=== PATIENT | female | born 1950 | race Caucasian/White ===

== ENCOUNTER → 2016-06-16 | Outpatient (CLI) | payer BC ==
[~2016-06-16] MED LIST: CHOL100010 PO; CITA10TA8 PO; CLMTP1 TD; SUMA100T16 PO
== END | disposition home or self-care (01) ==
LOC: C.PAPS 16:14
PROVIDERS: ATTEND Obstetrics & Gynecology
DX: Z12.4 Encounter for screening for malignant neoplasm of cervix (principal)

== ENCOUNTER → 2016-07-19 | Outpatient (CLI) | payer BC ==
[2016-07-19 09:31] LABS: BASO % 0.9 %; BASO ABS # 0.04 K/uL (0-0.2); COMPLETE YES; EOS % 3.2 %; HEMATOCRIT 36.3 % (37-47); IG% 0.2 %; LYMPH % 39.1 %; LYMPH ABS # 1.82 K/uL (1.2-3.4); MEAN CELL VOLUME 87.9 fL (80-100); MEAN CORPUSCULAR HEMOGLOBIN 30.5 pg (25-34); MEAN CORPUSCULAR HGB CONC 34.7 g/dl (32-36); MEAN PLATELET VOLUME 9.8 fL (7.4-10.4); MONO % 9.7 %; NEUT % 46.9 %; PLATELET COUNT 286 K/uL (130-400); RED BLOOD COUNT 4.13 M/uL (4.2-5.4); WHITE BLOOD COUNT 4.65 K/uL (4.8-10.8)
[2016-07-19 09:45] LABS: BLOOD UREA NITROGEN 8 mg/dl (7-18); BUN/CREATININE RATIO 12.7 (10-20); CALCIUM 8.8 mg/dl (8.5-10.1); CARBON DIOXIDE 26 mmol/L (21-32); CHLORIDE 104 mmol/L (98-107); CREATININE 0.62 mg/dl (0.60-1.20); GLUCOSE 95 mg/dl (70-99); POTASSIUM 4.2 mmol/L (3.5-5.1); SODIUM 138 mmol/L (136-145)
== END | disposition home or self-care (01) ==
LOC: C.LAB1850 07:09
PROVIDERS: ATTEND Family Medicine
DX: R00.2 Palpitations (principal)

== ENCOUNTER → 2016-08-23 | Outpatient (CLI) | payer BC | END | disposition home or self-care (01) | LOC: C.MAMM 14:25 | PROVIDERS: ATTEND Family Medicine | DX: M81.0 Age-related osteoporosis without current pathological fracture (principal); M85.88 Other specified disorders of bone density and structure, other site; M85.851 Other specified disorders of bone density and structure, right thigh; M85.852 Other specified disorders of bone density and structure, left thigh ==

== ENCOUNTER → 2016-11-11 | Outpatient (CLI) | payer BC ==
--- NOTE | 2016-11-11 15:22 | MAMMOGRAPHY REPORT ---
BILATERAL DIGITAL SCREENING MAMMOGRAM WITH CAD: 11/11/2016 CLINICAL HISTORY: Routine screening. Patient has no complaints. TECHNIQUE: Current study was also evaluated with a Computer Aided Detection (CAD) system. Bilateral CC and MLO views were obtained. COMPARISON: Comparison is made to exams dated: 11/10/2015 mammogram, 11/27/2014 ultrasound biopsy, 10/31 mammogram, 11/27/2014 stereotactic biopsy, 11/12/2014 mammogram, and 11/12/2014 ultrasound - [facility]. BREAST COMPOSITION: The tissue of both breasts is heterogeneously dense, which may obscure small mas ses. FINDINGS: No suspicious masses, calcifications, or areas of architectural distortion are noted in ei ther breast. There has been no significant interval change compared to prior exams. Biopsy marker cl ips are again noted bilaterally. Bilateral benign-appearing calcifications are not significantly sae nged. IMPRESSION: ACR BI-RADS CATEGORY 2: BENIGN There is no mammographic evidence of malignancy. A 1 year screening mammogram is recommended. The pa tient will receive written notification of the results. Approximately 10% of breast cancers are not detected with mammography. A negative mammographic report should not delay biopsy if a clinically suggestive mass is present. Jerica Patel M.D. /:11/11/2016 07:39:45 [employer] Operator: Danna HERRERA)(Carol), [facility] letter sent: Normal 1/2 BI-RADS Code: ACR BI-RADS Category 2: Benign
== END | disposition home or self-care (01) ==
LOC: C.MAMM 07:14
PROVIDERS: ATTEND Obstetrics & Gynecology
DX: Z12.31 Encounter for screening mammogram for malignant neoplasm of breast (principal)

== ENCOUNTER → 2017-07-15 | Outpatient (CLI) | payer BC ==
--- NOTE | 2017-07-15 14:22 | DIAGNOSTIC IMAGING REPORT ---
CERVICAL WITHOUT CONTRAST HISTORY: 66 years-old Female M54.12 Cervical radicular pain chronic left neck and left shoulder pain with radiation into the fingers COMPARISON: None available TECHNIQUE: Multiplanar multisequence MRI of the cervical spine was obtained without contrast. FINDINGS: The large field of view curtain feller blindstitch localizer images demonstrate no gross abnormality. The imaged posterior fossa structures appear unremarkable. There is no focal bone marrow edema, acute fracture or subluxation identified. No prevertebral soft tissue swelling. Signal within the imaged cervical spinal cord is within normal limits. C2-C3: Mild intervertebral disc space narrowing with uncovertebral spurring and mild facet arthrosis. No central canal or foraminal narrowing. C3-C4: Mild intervertebral disc space narrowing with uncovertebral spurring and small posterior disc bulge with mild facet arthrosis. Findings cause mild bilateral foraminal narrowing. Central canal is patent. C4-C5: Mild to moderate intervertebral disc space narrowing with uncovertebral spurring and small circumferential annular disc bulge with mild facet arthrosis. There is flattening of the ventral thecal sac without significant central canal stenosis. There is mild left with mild to moderate right foraminal narrowing. C5-C6: Moderate intervertebral disc space narrowing with small posterior disc osteophyte complex and mild facet arthrosis is noted causing mild central canal and moderate bilateral foraminal narrowing. C6-C7: Moderate intervertebral disc space narrowing with spondylitic spurring and small circumferential disc bulge flattens the ventral thecal sac. Mild facet arthrosis. There is no significant central canal or foraminal narrowing. C7-T1: Mild facet arthrosis and uncovertebral spurring without central canal or foraminal narrowing. The imaged upper thoracic levels are unremarkable. IMPRESSION: 1. Discogenic degenerative changes with mild facet arthrosis is noted most prominently at the C4-C5 through C6-C7 levels as above. 2. At C5-C6, there is mild central canal and moderate bilateral foraminal narrowing. 3. Mild left and mild to moderate right foraminal narrowing at C4-C5. 4. No focal bone marrow edema, acute fracture or subluxation. The above report was generated using voice recognition software. It may contain grammatical, syntax or spelling errors. Electronically signed by: Steven Alfaro M.D. 07/15/2017 2:21 PM Dictated Date/Time: 07/15/2017 1:26 PM
== END | disposition home or self-care (01) ==
LOC: C.MRIBC 12:29
PROVIDERS: ATTEND Psychiatry & Neurology Neurology
DX: M54.12 Radiculopathy, cervical region (principal)

== ENCOUNTER → 2017-12-23 | Outpatient (CLI) | payer BC ==
[~2017-12-23] MED LIST changes: +ONDA4TAB46 PO; +RBX500
[2017-12-23 11:13] LABS: BASO % 0.8 %; BASO ABS # 0.04 K/uL (0-0.2); EOS % 2.5 %; EOS ABS # 0.13 K/uL (0-0.5); HEMATOCRIT 37.2 % (37-47); HEMOGLOBIN 12.7 g/dL (12.0-16.0); IG# 0.01 K/uL (0.00-0.02); LYMPH % 33.6 %; LYMPH ABS # 1.77 K/uL (1.2-3.4); MEAN CELL VOLUME 91.6 fL (80-100); MEAN CORPUSCULAR HEMOGLOBIN 31.3 pg (25-34); MEAN CORPUSCULAR HGB CONC 34.1 g/dl (32-36); MEAN PLATELET VOLUME 9.3 fL (7.4-10.4); MONO % 8.2 %; MONO ABS # 0.43 K/uL (0.11-0.59); NEUT % 54.7 %; NEUT ABS # 2.89 K/uL (1.4-6.5); PLATELET COUNT 276 K/uL (130-400); RED CELL DISTRIBUTION WIDTH SD 43.8 fL (36.4-46.3); WHITE BLOOD COUNT 5.27 K/uL (4.8-10.8)
[2017-12-23 11:46] LABS: ALBUMIN 3.3 gm/dl (3.4-5.0); ALKALINE PHOSPHATASE 67 U/L (45-117); ALT/SGPT 32 U/L (12-78); AST/SGOT 27 U/L (15-37); BLOOD UREA NITROGEN 11 mg/dl (7-18); CALCIUM 8.5 mg/dl (8.5-10.1); CARBON DIOXIDE 26 mmol/L (21-32); CREATININE 0.67 mg/dl (0.60-1.20); GLUCOSE 90 mg/dl (70-99); SODIUM 136 mmol/L (136-145); TOTAL PROTEIN 6.6 gm/dl (6.4-8.2)
[2017-12-27 02:19] LABS: ANA SCREEN TC 249X NEGATIVE (NEGATIVE); ANTI-SS-A <1.0 NEG AI (<1.0 NEG); ANTI-SS-B <1.0 NEG AI (<1.0 NEG); COMPLEMENT C4** TC 44982E 27 MG/DL (15-57)
== END | disposition home or self-care (01) ==
LOC: C.LAB1850 10:25
PROVIDERS: ATTEND Family Medicine
DX: M25.50 Pain in unspecified joint (principal)

== ENCOUNTER 2020-07-01 06:12 | Inpatient (IN) ==
--- NOTE | 2020-06-13 10:36 | PAT Medication Instructions ---
Medication Instructions Date of Service June 13, 2020 Home Medications Medication Instructions Recorded hydrocodone 5 mg-acetaminophen 325 1 tab PO Q6H PRN #20 tab 10/15/19 mg tablet pantoprazole 40 mg tablet,delayed 40 mg PO BID #180 tab 12/25/19 release fremanezumab-vfrm 225 mg/1.5 mL 225 mg SQ MONTHLY 30 Days #1.5 ml 04/14/20 subcutaneous syringe estradiol 0.1 mg/24 hr weekly 1 patch TRANSDERMAL WK #12 ea 04/15/20 transdermal patch sumatriptan succinate 100 mg tablet 50 - 100 mg PO .COMPLEX PRN 90 05/23/20 Days #27 tab cholecalciferol (vitamin D3) 25 mcg (1,000 unit) capsule 1,000 units PO QAM multivitamin 1 tab PO QAM acetaminophen 500 mg tablet 500 mg PO Q6H PRN hydrocodone 5 mg-acetaminophen 325 mg tablet 1 tab PO Q6H PRN pantoprazole 40 mg tablet,delayed release 40 mg PO BID fremanezumab-vfrm 225 mg/1.5 mL subcutaneous syringe 225 mg SQ MONTHLY estradiol 0.1 mg/24 hr weekly transdermal patch 1 patch TRANSDERMAL WK sumatriptan succinate 100 mg tablet 50 - 100 mg PO .COMPLEX PRN ynuxk-6-sue-epa-ala-vit D3 1 tab PO TID Continue as directed fremanezumab-vfrm 225 mg/1.5 mL subcutaneous syringe 225 mg SQ MONTHLY estradiol 0.1 mg/24 hr weekly transdermal patch 1 patch TRANSDERMAL WK -- do note place near surgical site STOP taking 2 weeks before surgery If surgery is within 2 weeks, stop taking as soon as possible. njomd-7-ads-epa-ala-vit D3 1 tab PO TID DO NOT take the morning of surgery cholecalciferol (vitamin D3) 25 mcg (1,000 unit) capsule 1,000 units PO QAM multivitamin 1 tab PO QAM Take morning of surgery With a small sip of water, OTHERWISE NOTHING TO EAT OR DRINK AFTER MIDNIGHT: acetaminophen 500 mg tablet 500 mg PO Q6H PRN (if needed, may be taken up to four hours before surgery) hydrocodone 5 mg-acetaminophen 325 mg tablet 1 tab PO Q6H PRN (if needed, may be taken up to four hours before surgery) pantoprazole 40 mg tablet,delayed release 40 mg PO BID sumatriptan succinate 100 mg tablet 50 - 100 mg PO .COMPLEX PRN (if needed) Take evening before surgery acetaminophen 500 mg tablet 500 mg PO Q6H PRN (if needed) hydrocodone 5 mg-acetaminophen 325 mg tablet 1 tab PO Q6H PRN (if needed) pantoprazole 40 mg tablet,delayed release 40 mg PO BID sumatriptan succinate 100 mg tablet 50 - 100 mg PO .COMPLEX PRN (if needed) Other Notes If you have any questions please call us at [phone] or [phone] or [phone] or [phone]
--- NOTE | 2020-06-17 11:24 | Anesthesiology Consultation ---
Date of Service June 17, 2020 Assessment & Plan (1) Encounter for pre-operative examination: COVID Status: As of 06/17 assessment, patient denies travel to endemic area, known exposure/sick contacts, or symptoms of COVID19. Patient instructed that they and their household members must follow strict social distancing guidelines, wear a mask in public and avoid travel/events/gatherings for 14 days prior to surgery. Preoperative COVID19 testing to be completed prior to surgery per surgeon's arrangements (06/24). Patient made aware to self-isolate as much as possible between COVID testing and surgery. Patient will be getting her second COVID vaccine on 06/26. Discussed possibility of mild flu-like symptoms, patient will call if any symptoms persist closer to surgery. Chart Review Chart Review: Acceptable Risk for Surgery and Patient seen in Pre Admission Testing Teaching & Discussion Instructed NPO after midnight before surgery, except medications with 15 cc of water. Medication instructions provided according to the PAT guidelines. History Surgery Operation Date: 07/01/20 12:25 Proposed Procedures p L4-L5 Decompression and Fuson, Spinal Cord Monitoring - Cleveland Boyd DO Height/Weight Height: 5 ft 1 in Weight: 59.8 kg Allergies Allergy/AdvReac Type Severity Reaction Status Date / Time fluorometholone Allergy Mild Rash Verified 06/18/20 09:10 Medications Home Medications Medication Instructions Recorded Confirmed Last Taken cholecalciferol (vitamin D3) 25 1,000 units PO QAM 01/06/18 06/18/20 12/27/19 08:00 mcg (1,000 unit) capsule multivitamin 1 tab PO QAM 06/03/18 06/18/20 12/27/19 08:00 acetaminophen 500 mg tablet 500 mg PO Q6H PRN 07/06/18 06/18/20 12/27/19 08:00 hydrocodone 5 mg-acetaminophen 325 1 tab PO Q6H PRN #20 tab 10/15/19 06/18/20 10/15/19 mg tablet fremanezumab-vfrm 225 mg/1.5 mL 225 mg SQ MONTHLY 30 Days #1.5 ml 04/14/20 06/18/20 Unknown subcutaneous syringe estradiol 0.1 mg/24 hr weekly 1 patch TRANSDERMAL WK #12 ea 04/15/20 06/18/20 Unknown transdermal patch sumatriptan succinate 100 mg tablet 50 - 100 mg PO .COMPLEX PRN 90 05/23/20 06/18/20 Unknown Days #27 tab hvzwj-6-lrl-epa-ala-vit D3 1 tab PO TID 06/11/20 06/18/20 Unknown pantoprazole 40 mg tablet,delayed See Rx Instructions .ROUTE 06/18/20 06/18/20 Unknown release .COMPLEX #180 tab Past Medical History Medical History Arthralgia of multiple sites Cervical radiculopathy Classic migraine with aura F/U DR NICOL GRANADO Dyslipidemia PCP monitoring, no meds yet. Esophageal stenosis s/p EGD with dilation GERD (gastroesophageal reflux disease) Glaucoma s/p surgical intervention Hyperplastic colon polyp Lumbosacral spondylosis Myofascial pain RIGHT SIDE WITH MIGRAINES Neck pain GETS INJECTIONS FROM PAIN MANAGEMENT Osteoarthritis Osteopenia Osteoporosis, unspecified Postmenopausal hormone replacement therapy Symptomatic PVCs JUST OCCASIONAL-NO CARDIOLOGY Trouble swallowing RESOLVED WITH DILITATION/EGD Exercise / Class Metabolic Activity II 4-5 Yardwork/Stairs/Walk up hill (Denies CP or SOb with 1 FOS, does many times per day) Past Family History Family History Mother Diabetes Family history of diabetes mellitus Congestive heart failure Hypertension Obesity No family history of adverse response to anesthesia PONV Father Diabetes Alcohol abuse Family history of diabetes mellitus Congestive heart failure Cardiac disorder Hypertension Denies family history of Ovarian cancer Prostate cancer Myocardial infarction Breast cancer Colorectal cancer Past Surgical History Surgical History History of bilateral cataract extraction History of colonoscopy with polypectomy History of esophagogastroduodenoscopy (EGD) History of left breast biopsy benign History of tonsillectomy and adenoidectomy History of total hysterectomy with bilateral salpingo-oophorectomy (BSO) History of wisdom tooth extraction Status post glaucoma surgery bilt eyes Past Anesthesia History No Hx of Anesthesia Complications and No Family Hx of Anesthesia Complications (other than mother PONV) History of PONV No Hx of PONV and No Hx of Motion Sickness Social History Smoking Status: Never smoker Do You Dip or Chew Tobacco: No Hx Alcohol Use: Yes Alcohol type: wine alcohol intake frequency: holidays/special occasions only Hx Substance Use: No substance use type: does not use Review of Systems Pt denies any recent chest pain, shortness of breath, cough, fever, URI, or uncontrolled acid reflux (controlled). +rare heart palpitations Physical Exam Vital Signs BP: 133/91 P: 85bpm SPO2: 98% RA T: 97.7 F R: 16 ENMT Mouth: + dental restorations (many crowns and implants, upper front incisors are crowns); no chipped teeth and no loose teeth Thyromental Distance: < 3.5 Finger Breadths Mallampati Class: II Neck neck extension not limited Respiratory normal respiratory effort, lungs clear to auscultation Cardiovascular RRR, no murmur, no edema Testing Laboratory Results 06/17/20 11:36 06/17/20 11:36 PT 10.0 Seconds (9.0-12.0) 06/17/20 11:36 INR 1.0 (0.9-1.1) 06/17/20 11:36 APTT 25.6 Seconds (21.0-31.0) 06/17/20 11:36 Urine Color Yellow 06/17/20 11:36 Urine Appearance Clear (Clear) 06/17/20 11:36 Urine pH 7.0 (4.5-7.5) 06/17/20 11:36 Ur Specific [place] 1.008 (1.000-1.030) 06/17/20 11:36 Urine Protein Negative (Negative) 06/17/20 11:36 Urine Glucose (UA) Negative (Negative) 06/17/20 11:36 Urine Ketones Negative (Negative) 06/17/20 11:36 Urine Nitrite Negative (Negative) 06/17/20 11:36 Ur Leukocyte Esterase Negative (Negative) 06/17/20 11:36 Blood Type O Positive 06/17/20 11:36 Antibody Screen NEGATIVE 06/17/20 11:36 Electrocardiogram Date: 06/17/20 Findings: + NSR @ (67bpm) No significant change from 2009 EKG. Chest X-Ray Date: 06/17/20 Findings: + NAD
--- NOTE | 2020-06-17 12:12 | XRay Report ---
XR chest Pre-admission PA/Lat CLINICAL HISTORY: Preoperative chest COMPARISON STUDY: June 2018 FINDINGS: The cardiac and mediastinal contours are normal. There is no evidence of focal pulmonary co nsolidation. There is no evidence of failure. No pleural effusions are visualized.[ IMPRESSION: No active disease in the chest. ACT 112: Negative or not required by law. Electronically signed by: Bc Johnson M.D. 06/17/2020 12:10 PM
[2020-06-17 14:32] LABS: Appearance Urine Clear (Clear); Basophils # (auto) 0.03 K/uL (0-0.2); Basophils % (auto) 0.5 %; Bilirubin Urine Negative (Negative); Blood Urine Negative (Negative); Color Urine Yellow; Eosinophils # (auto) 0.08 K/uL (0-0.5); Eosinophils % (auto) 1.5 %; Glucose Urine UA Negative (Negative); Hematocrit (blood only) 35.7 % (37-47); Hemoglobin 12.1 g/dL (12.0-16.0); Ketones Urine Negative (Negative); Leukocyte Esterase Urine Negative (Negative); Lymphocytes % (auto) 30.9 %; Mean Corpuscular Hgb Conc 33.9 g/dL (32-36); Mean Corpuscular Volume 91.5 fL (80-100); Mean Platelet Volume 10.4 fL (7.4-10.4); Monocytes # (auto) 0.48 K/uL (0.11-0.59); Monocytes % (auto) 8.7 %; Neutrophils # (auto) 3.21 K/uL (1.4-6.5); Neutrophils % (auto) 58.4 %; Nitrite Urine Negative (Negative); Platelet Count 275 K/uL (130-400); Protein Urine Negative (Negative); RDW Coefficient of Variation 13.1 % (11.5-14.5); RDW Standard Deviation 43.7 fL (36.4-46.3); Specific Gravity Urine 1.008 (1.000-1.030); Urobilinogen Urine Negative (Negative)
[2020-06-17 14:38] LABS: BUN Creatinine Ratio 20.6 (10-20); Calcium 8.5 mg/dl (8.5-10.1); Creatinine Clr Calc Pharmacy 64.8 ml/min; Est GFR (African American) 103.4; Est GFR (Non-African American) 89.2; Potassium 3.8 mmol/L (3.5-5.1)
[2020-06-17 14:49] LABS: Partial Thromboplastin Time 25.6 Seconds (21.0-31.0)
--- NOTE | 2020-06-18 06:12 | Electrocardiogram Report ---
Test Reason : Blood Pressure : / mmHG Vent. Rate : 067 BPM Atrial Rate : 067 BPM P-R Int : 146 ms QRS Dur : 088 ms QT Int : 400 ms P-R-T Axes : 067 078 069 degrees QTc Int : 422 ms Normal sinus rhythm Normal ECG When compared with ECG of 22-JUL-2009 07:15, No significant change was found Confirmed by Elian Trinh ([id number]) on 06/18/2020 6:11:55 AM Referred By: Cleveland Boyd Confirmed By:Elian Trinh
[~2020-07-01 06:12] MED LIST changes: +ACETAMINOPHEN 500 MG TAB PO SCH; -CHOL100010 PO; -CITA10TA8 PO; -CLMTP1 TD; +CeleBREX 200 MG CAP PO SCH; +GABAPENTIN 300 MG CAP PO SCH; +LR 15ML/HR IV SCH; -ONDA4TAB46 PO; -RBX500; -SUMA100T16 PO; +ceFAZolin 1000MG 1,000 MG/7.5 ML SYR IV SCH
[2020-07-01] MEDS ORDERED: MIDAZOLAM HCL 1 MG/ML 2ML VIAL ONE (07:03)
[2020-07-01] MEDS ORDERED: LIDOCAINE HCL 2% 2 ML VIAL/AMP(20MG/ML) INFIL ONE (07:03)
[2020-07-01] MEDS ORDERED: ROCURONIUM BROMIDE 10 MG/ML 5 ML VIAL IV ONE (07:03)
[2020-07-01] MEDS ORDERED: fentaNYL citrate 100 MCG/2 ML VIAL ONE ×2 (07:03→08:27)
[2020-07-01] MEDS ORDERED: PROPOFOL IV EMULSION 10 MG/ML 20 ML VIAL IV ONE (07:03)
[2020-07-01] MEDS ORDERED: ONDANSETRON INJ 2 MG/ML 2 ML VIAL ONE (07:03)
[2020-07-01] MEDS ORDERED: BACITRACIN INJ 50,000 UNIT VIAL ONE (07:14)
[2020-07-01] MEDS ORDERED: BUPIVACAINE/EPINEPHRINE 0.5% MPF 1:200,000 30 ML VIAL ONE (07:14)
--- NOTE | 2020-07-01 07:34 | History & Physical Bridge Note ---
Date of Service July 01, 2020 History & Physical Bridge Note I have examined the patient, reviewed the History & Physical and in the interval since the performance of the History & Physical I have noted the following changes of clinical significance: no changes noted
--- NOTE | 2020-07-01 07:35 | History & Physical Report ---
Date of Service July 01, 2020 Assessment & Plan (1) Neurogenic claudication due to lumbar spinal stenosis: Admission and Anticipated Discharge Date Admission Date: L4-L5 decompression fusion History of Present Illness Chief Complaint: Back and leg pain Primary Care Provider: Indigo Ambrose MD This is a 69-year-old female presents with chronic persistent back and leg pain. Failing course of nonoperative care is here for surgical invention. Allergies Allergy/AdvReac Type Severity Reaction Status Date / Time fluorometholone Allergy Mild Rash Verified 07/01/20 06:39 Home Medications Medication Instructions Recorded Confirmed Type cholecalciferol (vitamin D3) 25 1,000 units PO QAM 01/06/18 07/01/20 History mcg (1,000 unit) capsule multivitamin 1 tab PO QAM 06/03/18 07/01/20 History acetaminophen 500 mg tablet 500 mg PO Q6H PRN 07/06/18 07/01/20 History hydrocodone 5 mg-acetaminophen 325 1 tab PO Q6H PRN #20 tab 10/15/19 06/24/20 Rx mg tablet fremanezumab-vfrm 225 mg/1.5 mL 225 mg SQ MONTHLY 30 Days #1.5 ml 04/14/20 07/01/20 Rx subcutaneous syringe estradiol 0.1 mg/24 hr weekly 1 patch TRANSDERMAL WK #12 ea 04/15/20 07/01/20 Rx transdermal patch sumatriptan succinate 100 mg tablet 50 - 100 mg PO .COMPLEX PRN 90 05/23/20 06/24/20 Rx Days #27 tab sqilb-9-fwa-epa-ala-vit D3 1 tab PO TID 06/11/20 07/01/20 History pantoprazole 40 mg tablet,delayed See Rx Instructions .ROUTE 06/18/20 06/24/20 Rx release .COMPLEX #180 tab Past Med/Surg History Medical History Arthralgia of multiple sites Cervical radiculopathy Classic migraine with aura Dyslipidemia Esophageal stenosis GERD (gastroesophageal reflux disease) Glaucoma Hyperplastic colon polyp Lumbosacral spondylosis Myofascial pain Neck pain Osteoarthritis Osteopenia Osteoporosis, unspecified Postmenopausal hormone replacement therapy Symptomatic PVCs Trouble swallowing Surgical History History of bilateral cataract extraction History of colonoscopy with polypectomy History of esophagogastroduodenoscopy (EGD) History of left breast biopsy History of tonsillectomy and adenoidectomy History of total hysterectomy with bilateral salpingo-oophorectomy (BSO) History of wisdom tooth extraction Status post glaucoma surgery Family History Mother Diabetes Family history of diabetes mellitus Congestive heart failure Hypertension Obesity No family history of adverse response to anesthesia Father Diabetes Alcohol abuse Family history of diabetes mellitus Congestive heart failure Cardiac disorder Hypertension Denies family history of Ovarian cancer Prostate cancer Myocardial infarction Breast cancer Colorectal cancer Social History Smoking Status: Never smoker Second Hand Exposure: No (DAD SMOKED); Do You Dip or Chew Tobacco: No; Hx Alcohol Use: No Hx Substance Use: No Preferred Language: Jordanian Communication Ability: Effective Visual Impairment: No Limitations Hearing Ability: Normal Break Off Worker Required: No Beliefs That Will Affect Care: None marital status: Current Living Situation: Spouse current occupational status: retired Other Information That Helps Us Care for You: No Feels Safe at Home: Yes Safety Concerns: Feels Safe At This Time Childhood Exposure to Second-Hand Smoke: No Dental Care, Regularly: Yes Physical Activity Frequency: 3-4 Times per Week Seatbelt Use: always Sunscreen Use: Yes Assistive Devices: Glasses Physical Exam Physical Exam: Patient is alert and oriented Heart regular rhythm Lungs clear to auscultation Results & Data ([facility]) Vital Signs (Past 12 Hours) Vital Signs Temp Pulse Resp BP BP Pulse Ox 07/01/20 06:52 145/101 H 07/01/20 06:46 36.7 C 87 18 155/102 H 96
[2020-07-01] MEDS ORDERED: ATROPINE SULFATE 0.1 MG/ML 10ML SYR IV PRN (08:57)
[2020-07-01] MEDS ORDERED: ONDANSETRON INJ 2 MG/ML 2 ML VIAL IV PRN ×2 (08:57→10:49)
[2020-07-01] MEDS ORDERED: LABETALOL HCL IV 5 MG/ML 20ML IV PRN (08:57)
[2020-07-01] MEDS ORDERED: PROMETHAZINE HCL 12.5 MG in SODIUM CHLORIDE 0.9% 50 ML IV PRN ×2 (08:57→10:49)
[2020-07-01] MEDS ORDERED: ePHEDrine sulfate 50 MG/ML AMP IV PRN (08:57)
[2020-07-01] MEDS ORDERED: NALOXONE HCL 0.4 MG/1 ML VIAL/CARP IV PRN ×2 (08:57→10:49)
[2020-07-01] MEDS ORDERED: FLUMAZENIL 0.1 MG/1 ML 10 ML VIAL IV PRN (08:57)
[2020-07-01] MEDS ORDERED: NEOSTIGMINE METHYLSULFATE 1 MG/ML 10ML VIAL ONE (09:01)
[2020-07-01] MEDS ORDERED: GLYCOPYRROLATE 0.2 MG/ML VIAL ONE (09:01)
--- NOTE | 2020-07-01 09:09 | Operative Report ---
Post Operative Report Pre & Post Diagnosis Operation Date: 07/01/20 07:45 Pre-Op Diagnosis: Lumbar spinal stenosis with spondylolisthesis L4-L5 Post-Op Diagnosis: Same I identified the patient and participated in the time-out.: Yes Procedure Operation Date: 07/01/20 07:45 Actual Procedures #1 lumbar decompression bilateral medial facetectomies and foraminotomies L3-4 and L4-5 per #2 posterior spinal fusion L4-5. #3 placement of posterior instrumentation L4-5. #4 interbody fusion L4-5. #5 placement peek cage 10 x 22 mm at L4-5. #6 placement locally harvested morselized autograft in the posterior gutters. #7 placement infuse collagen sponge and master graft in the posterior lateral gutters and osteopenic body space. Surgeon Cleveland Boyd DO Sap Crm Developer Mary Gutierrez Estimated Blood Loss 50 Findings Consistent with Post-Op Diagnosis Specimens None Indications This is a 69-year-old female who presents with above-mentioned diagnosis after failed extensive course of nonoperative care she is here for surgical invention. Description of Procedure Patient was met with identified informed consent obtained. Patient was then taken to the operative suite underwent an patient placed in the prone position Jim table top Michael frame. All bony prominences well-padded eyes inspected to ensure no external pressure placed upon them. This point the lumbar spine is prepped and draped in a sterile fashion. Sharp dissection with the assistance of Bovie cautery performed down to and exposing the lamina and transverse processes of L4-L5 bilaterally. From caudal cephalad fashion complete laminectomy of L4 partial laminectomy of L3 was performed including bilateral medial facetectomies and foraminotomies addressing severe spinal stenosis. Pedicle screws were then placed in L4 and L5 bilaterally with assistance of fluoroscopy the purposes dorothy placed. By way of a transforaminal approach on the right a complete discectomy was performed endplates curetted to subcortical being bone and a 10 x 22 mm peek cage filled with osteobone graft tapped in position. The rods were then locked in final position bilaterally. The transverse processes of L4 and L5 burred to subcortical bleeding bone. Infuse collagen sponge master graft local autograft was placed in the posterior lateral gutters. 15 round ROSANNE drain inserted. The incision was then closed with 1 Vicryl in the fascia 2-0 Vicryl subcutaneously and 4 Monocryl for final skin closure. Steri-Strip sterile dressing was placed. Patient will continue to PACU stable condition. Please note spinal cord monitoring was utilized that the procedure no changes noted. Lastly Mary Gutierrez was present at the entire p rocedure involved the patient positioning complex portions of the surgery and final skin closure. I attest to the content of the Intraoperative Record and any orders documented t herein. Any exceptions are noted below.
[2020-07-01] MEDS ORDERED: DEXAMETHASONE SOD INJ 4 MG/ML VIAL ONE (09:10)
[2020-07-01] MEDS: fentaNYL citrate 100 MCG/2 ML VIAL IV PRN ×4 (09:35→09:50)
--- NOTE | 2020-07-01 09:53 | Fluoroscopy Report ---
FL lumbar spine 2-3V CLINICAL HISTORY: L4-L5 Deompression and Fusion COMPARISON STUDY: 03/12/2020 FLUOROSCOPY TIME: 21 seconds. NUMBER OF FLUOROSCOPIC IMAGES: 2 FINDINGS: 2 intraoperative fluoroscopic spot images reveal postsurgical changes at L5-S1 discectomy a nd interbody fusion. There is posterior pedicle screw fixation. There is a minimal grade 1 spondyloli sthesis of L4 on L5 IMPRESSION: Intraoperative fluoroscopic spot images demonstrating postsurgical changes of an L4-5 sp inal decompression and fusion. ACT 112: Negative or not required by law. Electronically signed by: Bc Johnson M.D. 07/01/2020 9:52 AM
[2020-07-01] MEDS: HYDROmorphone INJ 1 MG/ML SYRINGE IV PRN ×4 (09:55→10:10)
--- NOTE | 2020-07-01 10:23 | Anesthesiology Progress Note ---
Date of Service July 01, 2020 Anesthesia Post Procedure Vital Signs Vital Signs: Temp Pulse Pulse Resp BP BP Pulse Ox 07/01/20 10:10 88 14 137/81 100 07/01/20 10:00 60 12 121/79 93 07/01/20 09:50 78 16 133/80 98 07/01/20 09:40 78 15 140/84 100 07/01/20 09:26 36.2 C L 79 16 136/82 100 07/01/20 06:52 145/101 H 07/01/20 06:46 36.7 C 87 18 155/102 H 96 Pain Intensity Left Lower Back: Pain Intensity: 2 Left Shoulder: Pain Intensity: 2 Back: Pain Intensity: 4 Transfer of Care Handoff Completed per policy Notes Mental Status: alert / awake / arousable Patient Amnestic to Procedure: Yes Nausea / Vomiting: adequately controlled Pain: adequately controlled Airway Patency, RR, SpO2: stable & adequate BP & HR: stable & adequate Hydration State: stable & adequate Anesthetic Complications: no major complications apparent
[2020-07-01] MEDS ORDERED: MAGNESIUM HYDROXIDE SUSP 30 ML UDC PO PRN (10:49)
[2020-07-01] MEDS ORDERED: ONDANSETRON 4 MG OD TAB PO PRN (10:49)
[2020-07-01] MEDS ORDERED: DO NOT ADMINISTER PNEUMOCOCCAL VACCINE PRN (10:49)
[2020-07-01] MEDS ORDERED: hydrOXYzine HCl 25 MG TAB PO PRN (10:49)
[2020-07-01] MEDS ORDERED: ACETAMINOPHEN 1,000 MG/100 ML VIAL IV PRN (10:49)
[2020-07-01] MEDS ORDERED: LORazepam 0.5 MG TAB PO PRN (10:49)
[2020-07-01] MEDS ORDERED: diphenhydrAMINE Capsule 25 MG CAP PO PRN (10:49)
[2020-07-01] MEDS ORDERED: FAMOTIDINE 20 MG TAB PO PRN (10:49)
[2020-07-01] MEDS ORDERED: ALUMINUM/MAGNESIUM SUSP 30 ML UDC PO PRN (10:49)
[2020-07-01] MEDS ORDERED: SOD PHOSPHATE/SOD BIPHOSPHATE ENEMA 132 ML BTL PR PRN (10:49)
[2020-07-01] MEDS ORDERED: HYDROmorphone INJ 0.5 MG/0.5 ML SYR IV PRN (10:49)
[2020-07-01] MEDS ORDERED: METOCLOPRAMIDE HCL INJ 5 MG/ML 2 ML VIAL IV PRN (10:49)
[2020-07-01] MEDS ORDERED: HYDROmorphone INJ 1 MG/ML SYRINGE IV PRN (10:49)
[2020-07-01] MEDS ORDERED: oxyCODONE HCL IR 5 MG TAB (IMMEDIATE RELEASE) PO PRN (10:49)
[2020-07-01] MEDS ORDERED: SUMAtriptan succinate 100 MG TAB PO PRN (10:49)
[2020-07-01] MEDS ORDERED: DO NOT ADMINISTER FLU VACCINE PRN (10:49)
[2020-07-01] MEDS ORDERED: LORazepam 0.5 MG/1 ML VIAL IV PRN (10:49)
--- NOTE | 2020-07-01 13:09 | Hospitalist Consultation ---
Date of Consultation July 01, 2020 Assessment & Plan (1) Neurogenic claudication due to lumbar spinal stenosis: POD #0 Pain an VTE prophylaxis management per Dr Boyd (2) Headache: Migraine with oxycodone. Resolved with sumatriptan. (3) Esophageal dysphagia: Continue pantoprazole 40 mg p.o. twice daily Thank you for the consult. We will sign off at this time. No change to chronic medications. History of Present Illness Reason for Consultation: Medical management Attending Physician: Cleveland Boyd, History of Present Illness Mirna Mckeon is a 69-year-old female who presents for elective back surgery performed by Dr Boyd today. She reports doing well after this with no medical problems identified at this time. She notes having a migraine earlier today for which she received sumatriptan to good effect. She reports taking pantoprazole 40mg PO BID regularly for esophageal dysphagia. No history of cardiovascular disease. Allergies Allergy/AdvReac Type Severity Reaction Status Date / Time fluorometholone Allergy Mild Rash Verified 07/01/20 06:39 Home Medications Medication Instructions Recorded Confirmed Type cholecalciferol (vitamin D3) 25 1,000 units PO QAM 01/06/18 07/01/20 History mcg (1,000 unit) capsule multivitamin 1 tab PO QAM 06/03/18 07/01/20 History acetaminophen 500 mg tablet 500 mg PO Q6H PRN 07/06/18 07/01/20 History hydrocodone 5 mg-acetaminophen 325 1 tab PO Q6H PRN #20 tab 10/15/19 06/24/20 Rx mg tablet fremanezumab-vfrm 225 mg/1.5 mL 225 mg SQ MONTHLY 30 Days #1.5 ml 04/14/20 07/01/20 Rx subcutaneous syringe estradiol 0.1 mg/24 hr weekly 1 patch TRANSDERMAL WK #12 ea 04/15/20 07/01/20 Rx transdermal patch sumatriptan succinate 100 mg tablet 50 - 100 mg PO .COMPLEX PRN 90 05/23/20 06/24/20 Rx Days #27 tab xzgjh-8-sfy-epa-ala-vit D3 1 tab PO TID 06/11/20 07/01/20 History pantoprazole 40 mg tablet,delayed See Rx Instructions .ROUTE 06/18/20 06/24/20 Rx release .COMPLEX #180 tab tramadol 50 mg PO Q6H PRN #30 tab 07/02/20 Rx Patient History Medical History Arthralgia of multiple sites Cervical radiculopathy Classic migraine with aura Dyslipidemia Esophageal stenosis GERD (gastroesophageal reflux disease) Glaucoma Hyperplastic colon polyp Lumbosacral spondylosis Myofascial pain Neck pain Osteoarthritis Osteopenia Osteoporosis, unspecified Postmenopausal hormone replacement therapy Symptomatic PVCs Trouble swallowing Surgical History History of bilateral cataract extraction History of colonoscopy with polypectomy History of esophagogastroduodenoscopy (EGD) History of left breast biopsy History of tonsillectomy and adenoidectomy History of total hysterectomy with bilateral salpingo-oophorectomy (BSO) History of wisdom tooth extraction Status post glaucoma surgery Family History Mother Diabetes Family history of diabetes mellitus Congestive heart failure Hypertension Obesity No family history of adverse response to anesthesia Father Diabetes Alcohol abuse Family history of diabetes mellitus Congestive heart failure Cardiac disorder Hypertension Denies family history of Ovarian cancer Prostate cancer Myocardial infarction Breast cancer Colorectal cancer Social History Smoking Status: Never smoker Second Hand Exposure: No (DAD SMOKED); Do You Dip or Chew Tobacco: No; Hx Alcohol Use: No Hx Substance Use: No Preferred Language: [place] Communication Ability: Effective Visual Impairment: No Limitations Hearing Ability: Normal Toy Department Manager Required: No Beliefs That Will Affect Care: None marital status: Current Living Situation: Spouse current occupational status: retired Other Information That Helps Us Care for You: No Feels Safe at Home: Yes Safety Concerns: Feels Safe At This Time Childhood Exposure to Second-Hand Smoke: No Dental Care, Regularly: Yes Physical Activity Frequency: 3-4 Times per Week Seatbelt Use: always Sunscreen Use: Yes Assistive Devices: Glasses and Walker Review of Systems Review of Systems: All systems reviewed & are unremarkable except as noted in HPI & below Physical Exam Constitutional: WD/WN, vitals as above Eyes: + anicteric sclerae; pupils not irregular ENMT: external ear and nose normal, oropharynx normal Respiratory: normal respiratory effort, lungs clear to auscultation Cardiovascular: RRR, no murmur, no edema Gastrointestinal (Abdomen): normal bowel sounds, soft, nontender, no hepatosplenomegaly Skin: no rashes, warm and dry Neurologic: awake; not confused Psychiatric: A+Ox3, euthymic affect Results & Data Results & Data ([facility]) Vital Signs (Past 12 Hours) Vital Signs Temp Pulse Pulse Resp BP BP Pulse Ox 07/01/20 12:34 36.3 C L 74 16 128/80 99 07/01/20 11:35 82 16 126/82 99 07/01/20 11:05 36.3 C L 72 14 110/69 99 07/01/20 10:35 36.4 C L 74 16 126/76 99 07/01/20 10:20 36.6 C 70 14 119/73 100 07/01/20 10:10 88 14 137/81 100 07/01/20 10:00 60 12 121/79 93 07/01/20 09:50 78 16 133/80 98 07/01/20 09:40 78 15 140/84 100 07/01/20 09:26 36.2 C L 79 16 136/82 100 07/01/20 06:52 145/101 H 07/01/20 06:46 36.7 C 87 18 155/102 H 96 PG Care Time/CCT Total # of Minutes Spent Total Time Spent with Patient: Total time spent is greater than 50% in coordination of care (as documented) at patient's floor/unit and/or counseling patient: Coding Level of Care Code 21017 Inpt Consult Level 3 Diagnoses Neurogenic claudication due to lumbar spinal stenosis M48.062 Headache R51 Esophageal dysphagia R13.10
[2020-07-01] MEDS: [UNRECOGNIZED DRUG - OTHER] SCH (14:03)
[2020-07-01] MEDS: ceFAZolin 1000MG 1,000 MG/7.5 ML SYR IV SCH (15:29)
[2020-07-01] MEDS: LACTATED RINGER'S 1,000 ML IV SCH (15:29)
[2020-07-01] MEDS: ACETAMINOPHEN 500 MG TAB PO PRN (20:01)
[2020-07-01] MEDS: DOCUSATE SODIUM/SENNA 50/8.6MG TAB PO SCH (20:01)
[2020-07-02] MEDS: PANTOprazole 40 MG TAB PO SCH ×3 (00:01→20:39)
[2020-07-02] MEDS: LACTATED RINGER'S 1,000 ML IV SCH ×2 (00:01→05:39)
[2020-07-02] MEDS: ceFAZolin 1000MG 1,000 MG/7.5 ML SYR IV SCH (00:01)
[2020-07-02] MEDS: [UNRECOGNIZED DRUG - OTHER] SCH ×4 (00:02→22:53)
[2020-07-02] MEDS: traMADol HCL 50 MG TABLET PO PRN ×5 (03:40→20:39)
[2020-07-02 06:35] LABS: Basophils # (auto) 0.02 K/uL (0-0.2); Basophils % (auto) 0.2 %; Eosinophils # (auto) 0.03 K/uL (0-0.5); Eosinophils % (auto) 0.3 %; Hematocrit (blood only) 33.1 % (37-47); Hemoglobin 11.2 g/dL (12.0-16.0); Immature Granulocytes # (auto) 0.02 K/uL (0.00-0.02); Immature Granulocytes % (auto) 0.2 %; Lymphocytes # (auto) 1.61 K/uL (1.2-3.4); Lymphocytes % (auto) 17.5 %; Mean Corpuscular Hemoglobin 30.4 pg (25-34); Mean Corpuscular Hgb Conc 33.8 g/dL (32-36); Mean Corpuscular Volume 89.9 fL (80-100); Mean Platelet Volume 8.8 fL (7.4-10.4); Monocytes # (auto) 0.92 K/uL (0.11-0.59); Neutrophils # (auto) 6.61 K/uL (1.4-6.5); Neutrophils % (auto) 71.8 %; Platelet Count 274 K/uL (130-400); RDW Coefficient of Variation 12.8 % (11.5-14.5); RDW Standard Deviation 41.9 fL (36.4-46.3); Red Blood Count 3.68 M/uL (4.2-5.4); White Blood Count 9.21 K/uL (4.8-10.8)
[2020-07-02 07:06] LABS: BUN Creatinine Ratio 7.9 (10-20); Calcium 8.3 mg/dl (8.5-10.1); Creatinine Clr Calc Pharmacy 63.7 ml/min; Est GFR (African American) 103.4; Est GFR (Non-African American) 89.2; Potassium 3.5 mmol/L (3.5-5.1)
[2020-07-02] MEDS: CHOLECALCIFEROL 1,000 UNITS 25 MCG TAB PO SCH (07:48)
[2020-07-02] MEDS: MULTIVITAMIN TAB PO SCH (07:48)
[2020-07-02] MEDS ORDERED: ESTRADIOL 0.1 MG/HR TDSY TD SCH (09:00)
[2020-07-02] MEDS: POLYETHYLENE (MIRALAX) 17 GM PACK PO SCH ×4 (09:06→22:54)
--- NOTE | 2020-07-02 13:00 | Orthopedic Progress Note ---
Date of Service July 02, 2020 Assessment & Plan (1) Neurogenic claudication due to lumbar spinal stenosis: Admission and Anticipated Discharge Date Admission Date: July 01, 2020 This time continue physical therapy monitor ROSANNE operatively discharge home next few days. Subjective Back pain controlled leg pain improved. Physical Exam Physical Exam: Patient is comfortable with good strength testing. Results & Data ([facility]) Vital Signs (Past 12 Hours) Vital Signs Temp Pulse Resp BP Pulse Ox 07/02/20 07:50 36.6 C 86 16 129/87 99 07/02/20 03:22 36.6 C 77 18 124/80 98
[2020-07-02] MEDS: DOCUSATE SODIUM/SENNA 50/8.6MG TAB PO SCH (20:39)
[2020-07-03] MEDS: traMADol HCL 50 MG TABLET PO PRN ×3 (01:16→16:59)
[2020-07-03] MEDS: POLYETHYLENE (MIRALAX) 17 GM PACK PO SCH ×4 (06:20→23:47)
[2020-07-03] MEDS: ACETAMINOPHEN 500 MG TAB PO PRN ×2 (06:20→20:40)
[2020-07-03] MEDS: [UNRECOGNIZED DRUG - OTHER] SCH ×3 (07:21→23:47)
[2020-07-03] MEDS: dexAMETHasone 8 MG in SYRINGE 0 ML IV SCH (07:34)
[2020-07-03] MEDS: CHOLECALCIFEROL 1,000 UNITS 25 MCG TAB PO SCH (07:34)
[2020-07-03] MEDS: MULTIVITAMIN TAB PO SCH (07:34)
[2020-07-03] MEDS: PANTOprazole 40 MG TAB PO SCH ×2 (07:34→21:11)
--- NOTE | 2020-07-03 08:30 | Orthopedic Progress Note ---
Date of Service July 03, 2020 Assessment & Plan (1) Neurogenic claudication due to lumbar spinal stenosis: Admission and Anticipated Discharge Date Admission Date: July 01, 2020 This time we will continue physical therapy monitor ROSANNE operatively discharge home tomorrow. Subjective Back pain is controlled leg pain markedly improved. Physical Exam Physical Exam: Patient's signature the bedside is good strength testing appears comfortable. Results & Data ([facility]) Vital Signs (Past 12 Hours) Vital Signs Temp Pulse Resp BP Pulse Ox 07/03/20 06:17 36.6 C 91 H 18 117/81 96 07/02/20 22:29 36.6 C 82 18 113/69 97
[2020-07-03] MEDS ORDERED: bisacodyL 10 MG SUPP PR PRN (09:10)
[2020-07-03] MEDS: DOCUSATE SODIUM/SENNA 50/8.6MG TAB PO SCH (21:11)
[2020-07-04] MEDS: POLYETHYLENE (MIRALAX) 17 GM PACK PO SCH (05:31)
[2020-07-04] MEDS: ACETAMINOPHEN 500 MG TAB PO PRN (06:16)
[2020-07-04] MEDS: [UNRECOGNIZED DRUG - OTHER] SCH (08:54)
[2020-07-04] MEDS: MULTIVITAMIN TAB PO SCH (08:55)
[2020-07-04] MEDS: dexAMETHasone 8 MG in SYRINGE 0 ML IV SCH (08:55)
[2020-07-04] MEDS: CHOLECALCIFEROL 1,000 UNITS 25 MCG TAB PO SCH (08:55)
[2020-07-04] MEDS: PANTOprazole 40 MG TAB PO SCH (08:55)
--- NOTE | 2020-07-04 12:47 | Discharge Summary ---
Date of Service July 04, 2020 Admission HPI Per Admitting Provider This is a 69-year-old female presents with chronic persistent back and leg pain. Failing course of nonoperative care is here for surgical invention. Principal Diagnosis Lumbar spinal stenosis with neurogenic claudication Discharge Data Allergies Allergy/AdvReac Type Severity Reaction Status Date / Time fluorometholone Allergy Mild Rash Verified 07/01/20 06:39 Consultations 07/01/20 10:49 Consult Case Management - Discharge Planning Routine Consult Hospitalist Routine Procedures Performed Operation Date: 07/01/20 07:45 Actual Procedures p L4-L5 Decompression and Fuson, Spinal Cord Monitoring, Application of Bone Morphogenetic Protein and Allograft - Cleveland Boyd DO Ordered Studies 07/01/20 FL fluoroscopy <1hr Routine FL lumbar spine 2-3V Routine Hospital Course (1) Neurogenic claudication due to lumbar spinal stenosis: Patient went lumbar decompression fusion tolerated this well was taken to the orthopedic floor possibly. Postop day 1 she was up and ambulating pro gressed to postop day #2 postop day 3 she had good strength testing ROSANNE drain decreasing appropriately. Subsequently discharged home. Discharge orders instructions from the chart for further review. Total Time Total Time Spent Total Time Spent (In Minutes): 20 minutes Discharge Plan Discharge Items Patient Disposition: Home - Self-Care Reason For Visit: Spinal Stenosis, Lumbar Region without Neurogenic Discharge Diagnosis: Lumbar spinal stenosis with neurogenic claudication Activity: As commented below Non-emergency contact: Primary Care Provider Call non-emergency contact if: you have any medication questions Follow-up/Referrals: Indigo Ambrose MD [Primary Care Provider] - Diet: Regular Addtl Attending Provider Instructions: ACTIVITY RECOMMENDATIONS: SELF CARE INSTRUCTIONS AFTER THORACIC/LUMBAR FUSIONS 1. You may walk to your tolerance. It is good exercise for your legs and back. Expect some back and intermittent leg aches and pains. 2. You may perform "counter-top" level activities (make a sandwich, deena with a project, etc.). 3. No bending or lifting of more than 10 pounds or back twisting of any nature (roll like a log when turning in bed). 4. You may ride in a car for 20-30 minutes at a time. No driving until after your first visit with your doctor. 5. Frequent changes of position and restricting sitting to 30 minutes at a time will help limit the amount of back spasms and stiffness you may experience. 6. You may discontinue the use of ambulatory aids (cane, crutches, etc.) once your strength and confidence allow. 7. You may dragline engineer the shower and let water strike your incision when you arrive home at least once daily. Do not take a tub bath, sit in a hot tub or go into a swimming pool until after your first recheck in the office. SPECIAL CARE INSTRUCTIONS: VERY IMPORTANT TO READ AND REVIEW A. Your surgical incision has been closed with a cosmetic suture under the skin that will dissolve in about 6 weeks. In 14 days, you can use a pair of clean scissors and cut the suture that is left outside of the skin at the ends of your incision. 1. The small skin tapes can be removed 7 days after surgery if they have not fallen off by that point. 2. You may keep the wound open to air as much as possible to promote healing after post-op day number 5 unless told otherwise by your doctor. 3. If you think the wound looks like it is becoming infected (redness or worsening drainage) and/or you are experiencing fever, chill or worsening back pain and muscle spasms, contact the office so that we may evaluate you as soon as possible. B. Complications are uncommon, but please contact us if you have any signs or symptoms of: 1. wound infection (fever higher than 102.5 degrees F, redness, separation of wound, drainage, or increasing pain from the incision) 2. blood clots in legs (pain, swelling, redness and warmth in legs) 3. urinary tract infection (fever higher than 102.5 degrees F, burning upon urination or increased frequency of urination) 4. nerve problems (inability to walk on your toes or heels, numbness, loss of bowel or bladder control) 5. any other symptoms that concern you C. Please call the office at if you have any concerns or questions about your operation or recovery. D. No smoking! Smoking drastically decreases the chance of a solid fusion. E. Do not take any anti-inflammatory medications (Indocin, Advil, Motrin, Aspirin, Naprosyn, etc.) as these may inhibit the chance of a solid fusion. Tylenol is okay to take for pain. MANAGING PAIN AFTER SPINAL SURGERY 1. Narcotic medication is intended for short-term use and will be provided for surgical pain. Surgical pain usually lasts for a period of 4-6 weeks. Narcotic medication includes Percocet, Vicodin, Darvocet, Tylenol #3 or Lortab. 2. Longer-term pain is more appropriately treated with non-narcotic medication such as Tylenol ES. 3. Muscle spasm is not appropriately treated with narcotics. Muscle relaxers such as Soma, Flexeril or Skelaxin can be used along with Tylenol ES. 4. Remember that we all live with some "aches and pains". This is not unusual or uncommon after an injury or as we get older. a. Back pain is expected and may include muscle spasms for 4 to 6 weeks after surgery. The pain should gradually improve. If the pain worsens for no apparent reason, please contact the office. b. Intermittent leg pain may also be experienced and should not be concerned about unless it worsens for no apparent reason. If so, please contact the office. 5. We will provide appropriate medication within the normal guidelines of their prescribed use. We will also be very cautious and aware of potential abuse and extended duration of patients' medication needs. a. Pain medications are for your comfort and to assist with sleep and rest so that the tissue can heal. They are not provided in order to return to normal activity and should not be used through the day. To do so or worsening pain at night can result from ongoing tissue damage and development of tolerance to the prescribed medicine. 6. Please allow 2-3 days to process refills. Prescriptions will not be mailed but must be picked up at the office. FOLLOW UP VISIT: Keep your scheduled follow-up appointment. Any questions, please call the office at . Pending Studies at Discharge: No Stand-Alone Forms: My [facility] [employer], Smoking Cessation Medications and DC Order Prescriptions: New tramadol 50 mg tablet 50 mg PO Q6H PRN (Reason: pain, moderate) Qty: 30 RF: 0 Continued cholecalciferol (vitamin D3) 1,000 unit capsule 1,000 units PO QAM RF: 0 acetaminophen [Tylenol Extra Strength] 500 mg tablet 500 mg PO Q6H PRN (Reason: Pain) RF: 0 Ajovy Syringe 225 mg/1.5 mL syringe 225 mg SQ MONTHLY 30 Days Qty: 1.5 RF: 5 sumatriptan succinate 100 mg tablet 50 - 100 mg PO .COMPLEX PRN (Reason: MIGRAINE) 90 Days Qty: 27 RF: 1 pantoprazole 40 mg tablet,delayed release (DR/EC) See Rx Instructions .ROUTE .COMPLEX Qty: 180 RF: 1 hydrocodone-acetaminophen 5-325 mg tablet 1 tab PO Q6H PRN (Reason: pain) Qty: 20 RF: 0 estradiol 0.1 mg/24 hr patch weekly 1 patch Transdermal WK Qty: 12 RF: 3 multivitamin Tablet 1 tab PO QAM RF: 0 xbcdo-8-afz-epa-ala-vit D3 50 mg (25 mg- 25 mg)-100 unit Tablet,Chewable 1 tab PO TID RF: 0 Discharge Orders: Discharge Order (Routine); Ordered 07/04/20 Ordered By: Cleveland Boyd Admission Data Admit Date/Time: 07/01/20 09:56 Attending Provider: Cleveland Boyd Admit Provider: Cleveland Boyd Primary Care Provider: Indigo Ambrose
[2020-07-04] MEDS: traMADol HCL 50 MG TABLET PO PRN (14:14)
== END 2020-07-04 14:32 | disposition home or self-care (01) ==
LOC: ASU 06:12 → 3E 09:56